=== PATIENT | female | born 1960 | race Caucasian/White ===

== ENCOUNTER → 2022-01-04 | Outpatient (CLI) | payer MEDICARE | LOC: LAB 12:49 | DX: E11.9 Type 2 diabetes mellitus without complications (principal) | CPT/HCPCS: 83036 ==

== ENCOUNTER → 2022-01-29 | Outpatient (CLI) | payer MEDICARE | LOC: KOH-I 10:46 | DX: S82.851D Displaced trimalleolar fracture of right lower leg, subsequent encounter for closed fracture with routine healing (principal) | CPT/HCPCS: 73610 ==